=== PATIENT | male | born 1955 | race Caucasian/White ===

== ENCOUNTER 2018-06-12 11:48 | Emergency (ER) | payer SELFPAY ==
[2018-06-12 11:56] VITALS: BP 150/81; PULSE 74; RESP 18; TEMP 97; O2SAT 98; BMI 28.7
--- NOTE | 2018-06-12 12:36 | ED PDOC ---
HPI: Eye Injury/Pain Time Seen by Provider: 06/12/18 12:20 Chief Complaint (Nursing): Eye Problem Chief Complaint (Provider): Eye Problem History Per: Patient History/Exam Limitations: language barrier (Lalo Harris #[id number]) Onset/Duration Of Symptoms: Days (x3 months) Current Symptoms Are (Timing): Still Present Additional Complaint(s): Patient is a 63 y/o male with no significant PMHx who presents to the ED for evaluation of bilateral eye pain and left eye swelling ongoing for the past three months. Patient also complains of blurry vision, redness, and itchiness a round the left eye. Patient states in March of 2018 he was prescribed inflammatory medication from his former PCP. However, patient has not been working and lost his insurance so has not been able to followup with his former PCP. Patient visited the [facility] on 06/06/2018 and was advised to continue the medication prescribed. Patient has an appointment with the [facility] set up for 06/18/2018. Of note, patient recently traveled to [facility]. PCP: [facility] Past Medical History Reviewed: Historical Data, Nursing Documentation, Vital Signs Vital Signs: Last Vital Signs Temp 97 F L 06/12/18 11:54 Pulse 74 06/12/18 11:54 Resp 18 06/12/18 11:54 BP 150/81 06/12/18 11:54 Pulse Ox 98 06/12/18 11:54 - Medical History PMH: No Chronic Diseases - Surgical History Surgical History: No Surg Hx - Family History Family History: States: No Known Family Hx - Home Medications Home Medications: Ambulatory Orders Medication Instructions Recorded Naphazoline/Pheniramine Opht 2 drop OD TID #15 ml 06/12/18 [Naphcon-A Opht] - Allergies Allergies/Adverse Reactions: Allergies Allergy/AdvReac Type Severity Reaction Status Date / Time aspirin Allergy RASH Verified 06/12/18 12:06 ibuprofen Allergy RASH Verified 06/12/18 12:06 Review of Systems ROS Statement: Except As Marked, All Systems Reviewed And Found Negative Eyes: Positive for: Pain (bilaterally), Vision Change (blurriness), Conjunctivae Inflammation (on left), Eyelid Inflammation (on left), Redness (on left), Other (itchy on left) Physical Exam - Reviewed Nursing Documentation Reviewed: Yes Vital Signs Reviewed: Yes - Physical Exam Appears: Positive for: Non-toxic, No Acute Distress Head Exam: Positive for: ATRAUMATIC, NORMAL INSPECTION, NORMOCEPHALIC Skin: Positive for: Normal Color, Warm, Dry Eye Exam: Positive for: EOMI, PERRL, Periorbital swelling (on left), Conjunctival injection (on left) Neck: Positive for: Normal, Painless ROM, Supple Cardiovascular/Chest: Positive for: Regular Rate, Rhythm. Negative for: Murmur Respiratory: Positive for: Normal Breath Sounds. Negative for: Respiratory Distress Extremity: Positive for: Normal ROM. Negative for: Pedal Edema, Deformity Neurologic/Psych: Positive for: Alert, Oriented. Negative for: Motor/Sensory Deficits - ECG O2 Sat by Pulse Oximetry: 98 (RA) Pulse Ox Interpretation: Normal Medical Decision Making Medical Decision Making: Time: 1225 Impression: Kvng on Left Plan: - Apply warm compress four times a day. - Patient told to continue prescribed medication. - Patient advised to followup with [facility] on 06/18/2018. The patient is stable for discharge. Scribe Attestation: Documented by Jared Larose, acting as a scribe for INGRID Acharya. Provider Scribe Attestation: All medical record entries made by the Scribe were at my direction and personally dictated by me. I have reviewed the chart and agree that the record accurately reflects my personal performance of the history, physical exam, medical decision making, and the department course for this patient. I have also personally directed, reviewed, and agree with the discharge instructions and disposition. Disposition - Clinical Impression Clinical Impression: Kvng external Doctor Will See Patient In The: Office Counseled Patient/Family Regarding: Diagnosis, Need For Followup, Rx Given - Disposition Referrals: [facility] [Outside] Disposition: Routine/Home Disposition Time: 13:17 Condition: STABLE Additional Instructions: Keep appointment as scheduled on 06/18 with the [facility] Continue taking the medication prescribed by your PMD Apply warm compresses to eye lid 3-4 times a day Prescriptions: Naphazoline/Pheniramine Opht [Naphcon-A Opht] 2 drop OD TID #15 ml Instructions: Chris (Kvng) Forms: Motorpaneer (Icelandic), Motorpaneer (French) Print Language: CONGOLESE
== END 2018-06-12 12:59 | disposition home or self-care (01) ==
LOC: H.ER 11:48
DX: H00.016 Hordeolum externum left eye, unspecified eyelid (principal)